=== PATIENT | female | born 1950 | race Caucasian/White ===

== ENCOUNTER 2023-12-09 09:58 | Day surgery (SDC) | payer MEDICARE ==
[2023-12-06 14:13] VITALS: BMI 25.0
[2023-12-09] MEDS ORDERED: fentaNYL PF 100 MCG/2 ML SYRINGE ONE (11:08)
[2023-12-09] MEDS ORDERED: PROPOFOL 40 ML ONE (11:59)
== END 2023-12-09 14:05 | disposition home or self-care (01) ==
LOC: SDC/OP 09:58
PROVIDERS: ATTEND Psychiatry & Neurology Neurology
DX: R41.3 Other amnesia (principal); I10 Essential (primary) hypertension; E78.00 Pure hypercholesterolemia, unspecified; E03.9 Hypothyroidism, unspecified; Z79.899 Other long term (current) drug therapy; Z96.652 Presence of left artificial knee joint
CPT/HCPCS: 70553; 93005; 93010; J2704